=== PATIENT | male | born 1955 | race Caucasian/White ===

== ENCOUNTER 2018-12-19 11:35 | Emergency (ER) | payer BC, MEDICARE ==
[~2018-12-19] VITALS: Ht 180.3 cm; Wt 113.4 kg
[2018-12-19] MEDS ORDERED: NORVASC5 MG PO (11:57)
[2018-12-19] MEDS ORDERED: KETOROLAC TROMETHAMINE 60 MG/2 ML VIAL IM ONE (13:15)
--- NOTE | 2018-12-19 13:18 | Diagnostic Imaging Report ---
KNEE 3VW RT - HOPD - 3 views HISTORY: Pain. Swollen right knee COMPARISON: None available. FINDINGS: Bones: No acute displaced fracture. Osseous alignment is within normal limits. Joints: Mild tricompartmental degenerative changes. Loose joint bodies in the posterior joint space. Soft tissues: The soft tissues appear unremarkable. IMPRESSION: Mild tricompartmental degenerative changes with loose joint bodies. Signed by: Dr. Justus Krishnamurthy M.D. on 12/19/2018 1:15 PM
== END 2018-12-19 13:45 | disposition home or self-care (01) ==
LOC: FSED 11:35
DX: S83.91XA Sprain of unspecified site of right knee, initial encounter (principal); X50.1XXA Overexertion from prolonged static or awkward postures, initial encounter; Y99.0 Civilian activity done for income or pay; I10 Essential (primary) hypertension; E78.00 Pure hypercholesterolemia, unspecified
CPT/HCPCS: 73562; 99284; J1885